=== PATIENT | female | born 1960 | race Caucasian/White ===

== ENCOUNTER 2023-07-06 00:41 | Emergency (ER) | payer SELFPAY ==
[~2023-07-06] VITALS: Ht 160 cm; Wt 127.0 kg
[2023-07-06 00:53] VITALS: BP 161/103
[2023-07-06 01:01] VITALS: BP 131/108
[2023-07-06 01:15] VITALS: BP 137/81
[2023-07-06 01:24] LABS: BASO% 0.3 % (0-3); EOS% 1.6 % (0-8); HEMATOCRIT 44.2 % (37.0-47.0); HEMOGLOBIN 14.7 g/dl (12.0-16.0); IMMATURE GRANULOCYTES 1.1 % (0.0-5.0); LYMPH% 15.4 % (15-41); MEAN CELL VOLUME 86.2 fL CALC (80.0-100.0); MEAN CORPUSCULAR HGB 28.7 pG CALC (26.0-32.0); MEAN CORPUSCULAR HGB CONC 33.3 g/dL CAL (32.0-36.0); NEUT# 12.17 thou/uL (2.00-7.15); NEUT% 76.6 % (42-76); RED BLOOD COUNT 5.13 mill/uL (4.20-5.60)
[2023-07-06 01:30] VITALS: BP 145/75
[2023-07-06 01:35] LABS: ALBUMIN 4.9 g/dL (3.2-5.0); ALKALINE PHOSPHATASE 105 u/l (38-126); ANION GAP 20 (6-22 (CALC)); BILIRUBIN, TOTAL 2.2 mg/dL (0.02-1.3); BUN 28 mg/dL (8-23); BUN/CREATININE RATIO 39 (12-20 (CALC)); CARBON DIOXIDE 16 mmol/l (22-30); CHLORIDE 105 mmol/l (95-108); CREATININE 0.7 mg/dL (0.5-1.0); ETHYL ALCOHOL 17 mg/dl (0-30); GFR FOR AFR.AMER. > 60 ML/MIN (>=60 (CALC)); GFR OTHER RACES > 60 ML/MIN (>=60 (CALC)); POTASSIUM 5.6 mmol/l (3.5-5.1); SGOT/AST 129 u/l (9-36); SODIUM 135 mmol/l (137-146); TOTAL PROTEIN 9.1 g/dL (6.3-8.2)
[2023-07-06 03:22] VITALS: BP 145/75
== END 2023-07-06 03:22 | disposition left against medical advice (07) | DRG 923 ==
LOC: ED 00:41
PROVIDERS: Emergency Medicine
DX: Z04.1 Encounter for examination and observation following transport accident (principal); J44.1 Chronic obstructive pulmonary disease with (acute) exacerbation; E87.5 Hyperkalemia; Z20.822 Contact with and (suspected) exposure to COVID-19; Z53.29 Procedure and treatment not carried out because of patient's decision for other reasons